=== PATIENT | male | born 1950 | race Caucasian/White ===

== ENCOUNTER 2016-12-09 12:01 | Day surgery (SDC) | payer MEDICARE, OTHER ==
[2016-12-09] MEDS ORDERED: PROPOFOL 10 MG/ML VIAL IV ONE (15:47)
[2016-12-09] MEDS ORDERED: LIDOCAINE 2% MDV (20MG/ML) 20ML VIAL IV ONE (15:47)
--- NOTE | 2016-12-11 13:10 | Operative Note ---
DATE OF SURGERY: 12/09/2016 OPERATION: COLONOSCOPY to the cecum with cold biopsy forceps polypectomy. INDICATION: History of adenomatous polyp. The patient returns at this time for surveillance. His last examination was by another physician in 2007. ANESTHESIA: Intravenous sedation was administered by the department of anesthesiology and included Diprivan titrated to effect. PROCEDURE: Following informed consent from this alert individual including a discussion of the risks and benefits of the procedure and an opportunity for the patient to ask questions, the patient was in the left lateral decubitus position. A digital rectal examination was performed. No abnormalities were noted. Following this, the Olympus [id number] video colonoscope was inserted into the rectum without resistance. The rectal mucosa had a normal appearance with normal folds and distensibility. The colonoscope was advanced up through the bowel to the level of the cecum without much difficulty. A few scattered diverticula were noted in the sigmoid region. The cecum was defined by noting the appendiceal orifice and ileocecal valve. The colon preparation was good. From the base of the cecum, the colonoscope was then withdrawn back through the bowel, reexamining the mucosa upon withdrawal. At the level of the hepatic flexure there was a 3-4 mm polyp noted which was removed with biopsy forceps. No other changes were appreciated except for the diverticulosis noted in the sigmoid region. Retroflexion in the rectum was endoscopically unremarkable. The endoscope was straightened and removed. The patient tolerated the procedure well and was returned to the recovery area in stable condition. IMPRESSION: 1. A 4 mm hepatic flexure polyp removed with biopsy forceps. 2. Sigmoid diverticulosis. RECOMMENDATIONS: The patient was advised he should receive a copy of his pathology report at home in the next 2-3 weeks. If not, he was asked to call my office to review the results of testing today. Further recommendations may be forthcoming pending those results. Followup will also be with Dr. Mcbride. As always, thank you for allowing me to participate in the care of your patient. CC: Dr. Reed MONTEZ
== END 2016-12-09 14:00 | disposition home or self-care (01) ==
LOC: HOP 12:01
PROVIDERS: ATTEND Internal Medicine Gastroenterology
DX: Z12.11 Encounter for screening for malignant neoplasm of colon (principal); D12.3 Benign neoplasm of transverse colon; K57.30 Diverticulosis of large intestine without perforation or abscess without bleeding